=== PATIENT | female | born 1975 | race Two or more races ===

== ENCOUNTER 2017-01-14 16:10 | Emergency (ER) | payer MEDICAID ==
[~2017-01-14] VITALS: Ht 157.5 cm; Wt 77.1 kg
[2017-01-14 16:57] VITALS: BP 144/89
--- NOTE | 2017-01-15 21:05 | Emergency Room Report ---
History of Present Illness General Chief Complaint: Medical Clearance Source: Patient Present Illness HPI 41-year-old female presents ED for evaluation. Patient is in police custody. Patient is here for medical clearance. Patient is a diabetic and states that she did not take her medication today. Takes Novolin with her meals takes Lantus at night. Accu-Chek in ER greater than 300. Patient states she feels okay. Denies any dizziness or weakness. No track of any relieving factors. Denies any other associated Allergies: Coded Allergies: No Known Allergies (Unverified , 01/14/17) Patient History Past Medical History: DM Past Surgical History: none Pertinent Family History: none Social History: Denies: alcohol use, drug use, smoking Now: No Immunizations: UTD Reviewed Nursing Documentation: PMH: Agreed, PSxH: Agreed Nursing Documentation-PMH Past Medical History: No History, Except For Hx Diabetes: Yes Review of Systems All Other Systems: negative except mentioned in HPI Physical Exam Vital Signs Date Time Temp Pulse Resp B/P Pulse Ox O2 Delivery O2 Flow Rate FiO2 01/14/17 16:05 98.4 100 20 144/89 100 Room Air Sp02 EP Interpretation: reviewed, normal General Appearance: no apparent distress, alert, GCS 15, non-toxic Head: normocephalic, atraumatic Eyes: bilateral eye PERRL, bilateral eye normal inspection ENT: hearing grossly normal, normal pharynx, no angioedema, normal voice Neck: full range of motion, supple/symm/no masses Respiratory: chest non-tender, lungs clear, normal breath sounds, speaking full sentences Cardiovascular #1: regular rate, rhythm, no edema Cardiovascular #2: 2+ carotid (R), 2+ carotid (L), 2+ radial (R), 2+ radial (L) , 2+ dorsalis pedis (R), 2+ dorsalis pedis (L) Gastrointestinal: normal bowel sounds, non tender, soft, non-distended, no guarding, no rebound Rectal: deferred Genitourinary: normal inspection, no CVA tenderness Musculoskeletal: back normal, gait/station normal, normal range of motion, non- tender Neurologic: alert, oriented x3, responsive, motor strength/tone normal, sensory intact, speech normal Psychiatric: judgement/insight normal, memory normal, mood/affect normal, no suicidal/homicidal ideation Reflexes: 3+ bicep (R), 3+ bicep (L), 3+ tricep (R), 3+ tricep (L), 3+ knee (R) , 3+ knee (L) Skin: normal color, no rash, warm/dry, well hydrated Lymphatic: no adenopathy Medical Decision Making Diagnostic Impression: Primary Impression: Diabetes Qualified Codes: E13.8 - Other specified diabetes mellitus with unspecified complications Additional Impression: Medical clearance for incarceration ER Course Hospital Course 41-year-old female presents to ED for and intermediate clearance. h/o diabetes. accucheck > 300 Clinical course Patient placed on stretcher. Handcuffs. After initial history, physical exam reveals a female in no acute distress. Accu-Chek greater than 300. Patient given her dose of Novolin 8 units physical exam was unremarkable. I believe patient be safely discharged into police custody. Diagnosis - medical clearance for incarceration , diabetes stable and discharged into police custody Last Vital Signs Date Time Temp Pulse Resp B/P Pulse Ox O2 Delivery O2 Flow Rate FiO2 01/14/17 16:57 98.4 20 144/89 100 Room Air 01/14/17 16:05 100 Status: improved Disposition: HOME, SELF-CARE Condition: Stable Referrals: NOT CHOSEN IPA/MD,REFERRING (PCP) Departure Forms: Correction Clearance Patient Instructions: Diabetes and Standards of Medical Care NEVIN GOINS M.D. January 15, 2017 21:05
== END 2017-01-14 16:57 | disposition home or self-care (01) ==
LOC: EDBD 16:10 → EMR 16:35
DX: E11.9 Type 2 diabetes mellitus without complications (principal); Z91.14 Patient's other noncompliance with medication regimen
CPT/HCPCS: 82962; 99283; J1815